=== PATIENT | female | born 1985 | race Caucasian/White ===

== ENCOUNTER 2017-03-12 22:04 | Emergency (ER) | payer SELFPAY ==
[~2017-03-12] VITALS: Ht 167.6 cm; Wt 60.0 kg
[~2017-03-12 22:04] MED LIST: ACET5SOL5 PO; AUGM875T PO
[2017-03-12 22:16] VITALS: BP 122/79; PULSE 114; RESP 18; TEMP 97.6; O2SAT 95
[2017-03-12 22:20] VITALS: BP 122/79; PULSE 114; RESP 18; O2SAT 96
[2017-03-12] MEDS ORDERED: SODIUM CHLOR 0.9% 1000 ML INJ 1,000 ML IV ONE (22:45)
[2017-03-12] MEDS ORDERED: ONDANSETRON HCL 4 MG/2 ML VIAL IV ONE (22:45)
--- NOTE | 2017-03-12 22:51 | PD ---
HPI Chief Complaint: OD/ Ingestion Time Seen by Provider: 22:32 Travel History International Travel<30 days: No Contact w/Intl Traveler<30days: No Traveled to known affect area: No History of Present Illness HPI The patient is a 31 year old female who presents to the [facility] emergency department with a history of being found by her roommate unresponsive after using IV heroin. The patient had blue coloration with decreased respiratory rate. Ambulance services reported that she had pinpoint pupils. IV access was obtained and the patient was administered Narcan. The patient became awake and alert with a GCS of 15. On arrival, the patient is initially requesting to go home. According to ambulance services after Narcan was administered the patient had 1 episode of vomiting. The patient has emesis on her face. She denies ever having a history previously of overdosing on heroin or dilaudid. She reports that she prefers to use Dilaudid, however she was having difficulty obtaining this as she used the heroin today. She reports that the dose most of been stronger. I review of systems, the patient denies any recent fevers, cough, congestion, neck pain, chest pain, shortness of breath , abdominal pain, diarrhea, urinary symptoms, or neurologic symptoms. LMP: Approximate month ago. She denies any possibility of being . [facility] Past Medical History Narrative Medical The patient's past medical history is significant for hepatitis C, IV drug use, anxiety and depression, asthma, headaches Asthma: Yes Anxiety: Yes Depression: Yes Cancer: No Cardiovascular Problems: Yes Chest Pain: Yes Diminished Hearing: No Endocrine: No Gastrointestinal Disorders: No Genitourinary: No Hepatitis: Yes (C) Hypertension: Yes (REMOTE HISTORY; RESOLVED; NOT TAKING MEDICATIONS FOR HTN AT THIS TIME) Implanted Vascular Access Dvce: No Musculoskeletal: Yes Neurologic: Yes Psychiatric: Yes Respiratory: Yes (BRONCHITIS) Migraines: Yes ?: Not LMP: 02/13/17 : 1 Para: 0 Miscarriage: 0 : 1 Ovarian Cysts: Yes Past Surgical History Narrative Surgical The patient denies any past surgical history. Surgical History: No Previous Surgery Other Surgery: No Social History Alcohol Use: No (DENIES) Tobacco Use: Yes (1/2 PPD) Substance Use: Yes (XANAX/HERoin, Dilaudid) Allergies-Medications (Allergen,Severity, Reaction): Coded Allergies: No Known Allergies (Verified , 03/05/15) Reported Meds & Prescriptions Reported Meds & Active Scripts Active Proair Respiclick Inh (Albuterol Sulfate) 90 Mcg/Act Aerp 2 Puff INH Q4-6H PRN Review of Systems Except as stated in HPI: all other systems reviewed are Neg General / Constitutional: No: Fever Eyes: No: Visual changes HENT: No: Headaches Cardiovascular: No: Chest Pain or Discomfort Respiratory: No: Shortness of Breath Gastrointestinal: Positive: Vomiting, No: Nausea, Abdominal Pain Genitourinary: No: Dysuria Musculoskeletal: No: Pain Skin: No Rash Neurologic: Positive: Change in Mentation, No: Weakness, Focal Abnormalities, Sensory Disturbance Psychiatric: Positive: Substance Abuse, No: Depression Endocrine: No: Polydipsia Hematologic/Lymphatic: No: Easy Bruising Physical Exam Narrative General: The patient is a well-developed well-nourished female in no acute distress, disheveled appearing on arrival with emesis dried along the sides of her face. Head and Neck exam: Head is normocephalic atraumatic. Eyes: EOMI, pupils are equal round and reactive to light. Nose: Midline septum with pink mucous membranes Mouth: Dentition unremarkable. Moist mucus membranes. Posterior oropharynx is not erythematous. No tonsillar hypertrophy. Uvula midline. Airway patent. Neck: No palpable lymphadenopathy. No nuchal rigidity. No thyromegaly. Cardiovascular: Sinus tachycardia in the low 100s without murmurs, gallops, or rubs. Lungs: Clear to auscultation bilaterally. No wheezes, rhonchi, or rales. Abdomen: Soft, without tenderness to palpation in all 4 quadrants of the abdomen. No guarding, rebound, or rigidity. Normal bowel sounds are audible. No tenderness on palpation of McBurney's point. Extremities: No clubbing, cyanosis, or edema. 2+ pulses in all 4 extremities. No calf tenderness on palpation. Back: No spinous process tenderness to palpation. No costovertebral angle tenderness to palpation. Neurologic Exam: Cranial nerves 2-12 were intact on exam. Strength is 5/5 in all 4 extremities. No sensory deficits noted. The patient is oriented to person, place, time, and situation. Skin Exam: No rash noted. Intact skin that is warm and dry. The patient is noted to have track staton on her upper extremities. Data Data Last Documented VS Vital Signs Date Time Temp Pulse Resp B/P Pulse Ox O2 Delivery O2 Flow Rate FiO2 03/13/17 00:15 111 18 97/50 96 Nasal Cannula 2 03/12/17 22:16 97.6 Orders Complete Blood Count With Diff (03/12/17 22:32) Basic Metabolic Panel (Bmp) (03/12/17 22:32) Urinalysis - C+S If Indicated (03/12/17 22:32) Chest, Single Ap (03/12/17 22:32) Iv Access Insert/Monitor (03/12/17 22:32) Ecg Monitoring (03/12/17 22:32) Oximetry (03/12/17 22:32) Ed Urine Pregnancytest Poc (03/12/17 22:32) Sodium Chlor 0.9% 1000 Ml Inj (Ns 1000 M (03/12/17 22:45) Ondansetron Inj (Zofran Inj) (03/12/17 22:45) Sodium Chloride 0.9% Flush (Ns Flush) (03/12/17 23:00) Albuterol-Ipratropium Neb (Duoneb Neb) (03/12/17 23:00) Labs Laboratory Tests Test 03/12/17 03/12/17 23:00 23:15 White Blood Count 10.2 TH/MM3 Red Blood Count 3.92 MIL/MM3 Hemoglobin 12.2 GM/DL Hematocrit 35.6 % Mean Corpuscular Volume 90.8 FL Mean Corpuscular Hemoglobin 31.1 PG Mean Corpuscular Hemoglobin 34.2 % Concent Red Cell Distribution Width 13.3 % Platelet Count 196 TH/MM3 Mean Platelet Volume 7.2 FL Neutrophils (%) (Auto) 72.2 % Lymphocytes (%) (Auto) 19.6 % Monocytes (%) (Auto) 6.8 % Eosinophils (%) (Auto) 1.3 % Basophils (%) (Auto) 0.1 % Neutrophils # (Auto) 7.4 TH/MM3 Lymphocytes # (Auto) 2.0 TH/MM3 Monocytes # (Auto) 0.7 TH/MM3 Eosinophils # (Auto) 0.1 TH/MM3 Basophils # (Auto) 0.0 TH/MM3 CBC Comment DIFF FINAL Differential Comment Sodium Level 142 MEQ/L Potassium Level 3.7 MEQ/L Chloride Level 103 MEQ/L Carbon Dioxide Level 31.2 MEQ/L Anion Gap 8 MEQ/L Blood Urea Nitrogen 9 MG/DL Creatinine 0.93 MG/DL Estimat Glomerular Filtration 71 ML/MIN Rate Random Glucose 83 MG/DL Calcium Level 8.3 MG/DL Urine Color YELLOW Urine Turbidity HAZY Urine pH 6.5 Urine Specific [place] 1.012 Urine Protein 30 mg/dL Urine Glucose (UA) NEG mg/dL Urine Ketones NEG mg/dL Urine Occult Blood NEG Urine Nitrite NEG Urine Bilirubin NEG Urine Urobilinogen LESS THAN 2.0 MG/DL Urine Leukocyte Esterase NEG Urine RBC 1 /hpf Urine WBC 2 /hpf Urine Squamous Epithelial 1 /hpf Cells Urine Bacteria RARE /hpf Urine Mucus FEW /lpf Microscopic Urinalysis Comment CULT NOT INDICATED MDM Medical Decision Making Medical Screen Exam Complete: Yes Emergency Medical Condition: Yes Medical Record Reviewed: Yes Interpretation(s) Last Impressions Chest X-Ray 03/12/172231 Signed Impressions: Service Date/Time: Sunday, March 12, 2017 22:32 - CONCLUSION: Normal examination. Beto Alan MD Differential Diagnosis Accidental heroin overdose, versus polysubstance abuse, versus aspiration Narrative Course During the course of the patients emergency department visit, the patients history, examination, and differential diagnosis were reviewed with the patient. The patient had IV access obtained and blood work sent for analysis. The patient was placed on a monitoring coordinator with oximetry and blood pressure monitoring. The patient was instructed regarding the importance of staying for observation in the emergency department as she can develop recurrent respiratory depression when the Narcan wears off. The patient was agreeable with this plan. The patient was initially provided normal saline 1 L IV fluid bolus, Zofran 4 mg IV. The patient was given a DuoNeb 2. The patients laboratory studies were reviewed and remarkable for a white count 10.2, hemoglobin 12.2, platelets 196 with 72.2 neutrophils, basic metabolic profile is remarkable for a GFR 71, calcium 8.3, urinalysis is unremarkable per Radiology studies were reviewed and remarkable for a chest x-ray that shows no acute abnormality. The patient was observed in the emergency department and had no further episodes of respiratory depression. The patient will be discharged home with a prescription for pro-air inhaler for her asthma. The patient is resting comfortably and feels better, is alert and in no distress. The patients results and examination findings were discussed with the patient. The repeat examination is unremarkable and benign. The history, exam, diagnostic testing, and current condition do not suggest any significant pathology to warrant further testing, continued ED treatment, admission, or surgical evaluation at this point. The vital signs have been stable. The patient does not have uncontrollable pain, intractable vomiting, or other significant symptoms. The patient's condition is stable and appropriate for discharge. The patient will pursue further outpatient evaluation with a primary care physician or other designated or consulting physician as indicated in the discharge instructions. The patient expressed understanding and was agreeable with this plan. Diagnosis Primary Impression: Opiate or related narcotic overdose Qualified Code: T40.601A - Opiate or related narcotic overdose, accidental or unintentional, initial encounter Referrals: Primary Care Physician 2 days Patient Instructions: Asthma (ED), General Instructions, Narcotic Abuse (ED) Med/Other Pt SpecificInfo: Prescription(s) given Scripts Albuterol Powder Inh (Proair Respiclick Inh)90 Mcg/Act Aerp2 Puff INH Q4-6H PRN (SHORTNESS OF BREATH) #1 INHALER Ref 0 Prov:Matilde Richardson MD 03/13/17 Disposition: 01 DISCHARGE HOME Condition: Stable Matilde Richardson MD Mar 12, 2017 22:51
[2017-03-12] MEDS ORDERED: SODIUM CHLORIDE 0.9% FLUSH 10 ML FLUSH IVF PRN (23:00)
--- NOTE | 2017-03-12 23:10 | RADRPT ---
EXAM DATE/TIME: 03/12/2017 22:32 [facility] COMPARISON: No previous studies available for comparison. INDICATIONS : Cough. MEDICAL HISTORY : None. SURGICAL HISTORY : None. ENCOUNTER: Initial ACUITY: 1 day PAIN SCORE: 0/10 LOCATION: Bilateral chest FINDINGS: A single view of the chest demonstrates the lungs to be symmetrically aerated without evidence of mas s, infiltrate or effusion. The cardiomediastinal contours are unremarkable. Osseous structures are intact. CONCLUSION: Normal examination. Beto Alan MD on March 12, 2017 at 23:08 Board Certified Radiologist. This report was verified electronically.
[2017-03-12 23:18] LABS: AUTOMATED NEUTROPHIL # 7.4 TH/MM3 (1.8-7.7); BASOPHIL % 0.1 % (0.0-2.0); EOSINOPHIL # 0.1 TH/MM3 (0-0.4); EOSINOPHIL % 1.3 % (0.0-4.0); HEMATOCRIT 35.6 % (35.0-46.0); HEMO FLAGS DIFF FINAL; LYMPH % 19.6 % (9.0-44.0); MEAN CELL VOLUME 90.8 FL (80.0-100.0); MEAN CORPUSCULAR HEMOGLOBIN 31.1 PG (27.0-34.0); MEAN CORPUSCULAR HGB CONC 34.2 % (32.0-36.0); MONO % 6.8 % (0.0-8.0); NEUT % 72.2 % (16.0-70.0); PLATELET COUNT 196 TH/MM3 (150-450); RED BLOOD COUNT 3.92 MIL/MM3 (4.00-5.30); RED CELL DISTRIBUTION WIDTH 13.3 % (11.6-17.2); WHITE BLOOD COUNT 10.2 TH/MM3 (4.0-11.0)
[2017-03-12 23:25] VITALS: O2SAT 99
[2017-03-12] MEDS: RESP: ALBUTEROL 2.5 MG/IPRATROPIUM 0.5 MG NEB (SCH) INH (23:25)
[2017-03-12 23:31] VITALS: RESP 18; O2SAT 95
[2017-03-12 23:44] LABS: BACTERIA, URINE RARE /hpf; BLOOD, URINE NEG (NEG); COMMENT (UR) CULT NOT INDICATED; CULTURE IF INDICATED CULT NOT INDICATED; GLUCOSE,URINE NEG (NEG); KETONE, URINE NEG (NEG); MUCUS URINE FEW /lpf (OCC); NITRITE,URINE NEG (NEG); PH, URINE 6.5 (5.0-8.5); SQUAMOUS EPITHELIAL CELL URINE 1 /hpf (0-5); URINE COLOR YELLOW (YELLW/STRAW)
[2017-03-12 23:48] LABS: BICARBONATE 31.2 MEQ/L (21.0-32.0)
[2017-03-13 00:02] LABS: POTASSIUM 3.7 MEQ/L (3.5-5.1)
[2017-03-13 00:15] VITALS: BP 97/50; PULSE 111; PULSE 70; RESP 18; O2SAT 96
[2017-03-13] MEDS ORDERED: ALBU1AER5 INH (00:23)
[2017-03-13 02:31] VITALS: BP 105/61; PULSE 98; RESP 18; O2SAT 95
== END 2017-03-13 02:31 | disposition home or self-care (01) ==
LOC: NEPE 22:04
DX: T40.601A Poisoning by unspecified narcotics, accidental (unintentional), initial encounter (principal); R11.10 Vomiting, unspecified; J45.909 Unspecified asthma, uncomplicated
CPT/HCPCS: 71010; 80048; 81001; 84703; 85025; 94640; 94664; 99284; J7030

== ENCOUNTER 2017-06-01 10:52 | Emergency (ER) | payer SELFPAY ==
[~2017-06-01] VITALS: Ht 167.6 cm; Wt 58.0 kg
[~2017-06-01 10:52] MED LIST changes: -ACET5SOL5 PO; +ALBU1AER5 INH; -AUGM875T PO
[2017-06-01 10:54] VITALS: BP 124/72; PULSE 91; RESP 17; TEMP 98.1; O2SAT 96
[2017-06-01 11:08] VITALS: BP 116/67; PULSE 90; RESP 28; O2SAT 98
--- NOTE | 2017-06-01 11:25 | PD ---
HPI Chief Complaint: Medical Clearance Time Seen by Provider: 11:25 Travel History International Travel<30 days: No Contact w/Intl Traveler<30days: No Traveled to known affect area: No History of Present Illness HPI 31-year-old female with history of IV drug use, drug of choice heroin, presents to emergency department today for evaluation of left-sided chest pain, worse with deep inspiration. Patient noticed this this morning that it was painful to take a deep breath. She does not recall any injury. Denies any exacerbation with palpation. States that she feels short of breath like she can 't catch her breath. Denies any history of PE or DVT. Patient denies fever or chills. No nausea or vomiting. Last used heroin at 3 AM this morning. PFSH Past Medical History Asthma: Yes Anxiety: Yes Depression: Yes Cancer: No Cardiovascular Problems: Yes Chest Pain: Yes Diminished Hearing: No Endocrine: No Gastrointestinal Disorders: No Genitourinary: No Hepatitis: Yes (C) Hypertension: Yes (REMOTE HISTORY; RESOLVED; NOT TAKING MEDICATIONS FOR HTN AT THIS TIME) Implanted Vascular Access Dvce: No Musculoskeletal: Yes Neurologic: Yes Psychiatric: Yes Respiratory: Yes (BRONCHITIS) Migraines: Yes ?: Not LMP: UNKNOWN : 1 Para: 0 Miscarriage: 0 : 1 Ovarian Cysts: Yes Past Surgical History Other Surgery: No Social History Alcohol Use: No (DENIES) Tobacco Use: Yes (1/2 PPD) Substance Use: Yes (XANAX/HERoin, Dilaudid) Allergies-Medications (Allergen,Severity, Reaction): Coded Allergies: No Known Allergies (Verified , 06/01/17) Reported Meds & Prescriptions Reported Meds & Active Scripts Active Proair Respiclick Inh (Albuterol Sulfate) 90 Mcg/Act Aerp 2 Puff INH Q4-6H PRN Review of Systems Except as stated in HPI: all other systems reviewed are Neg Physical Exam Narrative GENERAL: Well-nourished female patient, in no acute distress SKIN: Focused skin assessment warm/dry. HEAD: Atraumatic. Normocephalic. EYES: Pupils equal and round. No scleral icterus. No injection or drainage. ENT: No nasal bleeding or discharge. Mucous membranes pink and moist. NECK: Trachea midline. No JVD. CARDIOVASCULAR: Tachycardiac rate and rhythm. No murmur appreciated. RESPIRATORY: No accessory muscle use. Tachypneic Diminished left lower lobe. Pain elicited with deep inspiration Breath sounds equal bilaterally. GASTROINTESTINAL: Abdomen soft, non-tender, nondistended. Hepatic and splenic margins not palpable. MUSCULOSKELETAL: No obvious deformities. No clubbing. No cyanosis. No edema. NEUROLOGICAL: Awake and alert. No obvious cranial nerve deficits. Motor grossly within normal limits. Normal speech. Data Data Last Documented VS Vital Signs Date Time Temp Pulse Resp B/P Pulse Ox O2 Delivery O2 Flow Rate FiO2 06/01/17 13:18 92 16 118/68 98 Room Air 06/01/17 10:54 98.1 Orders Electrocardiogram (06/01/17 11:23) Complete Blood Count With Diff (06/01/17 11:23) Comprehensive Metabolic Panel (06/01/17 11:23) D-Dimer (06/01/17 11:23) Lipase (06/01/17 11:23) Chest, Single Ap (06/01/17 11:23) Ecg Monitoring (06/01/17 11:23) Bilateral Bp Monitoring (06/01/17 11:23) Iv Access Insert/Monitor (06/01/17 11:23) Oximetry (06/01/17 11:23) Oxygen Administration (06/01/17 11:23) Sodium Chloride 0.9% Flush (Ns Flush) (06/01/17 11:30) Ed Urine Pregnancytest Poc (06/01/17 11:23) Urinalysis - C+S If Indicated (06/01/17 11:23) Sodium Chlor 0.9% 1000 Ml Inj (Ns 1000 M (06/01/17 11:30) Lactic Acid Sepsis Protocol (06/01/17 12:29) Blood Culture (06/01/17 12:29) Troponin I (06/01/17 12:31) Creatine Kinase (Cpk) (06/01/17 12:31) Sodium Chlor 0.9% 1000 Ml Inj (Ns 1000 M (06/01/17 12:45) Morphine Inj (Morphine Inj) (06/01/17 12:45) Ondansetron Inj (Zofran Inj) (06/01/17 12:45) Vancomycin Inj (Vancomycin Inj) (06/01/17 12:45) Piperacil-Tazo 3.375 Gm Premix (Zosyn 3. (06/01/17 12:45) Urine Culture (06/01/17 12:30) Ct Pulmonary Angiogram (06/01/17 ) Vascular Access Team Consult/P PRN (06/01/17 13:09) Vascular Poc Ultrasound (06/01/17 ) Vancomycin Inj (Vancomycin Inj) (06/01/17 13:11) Cefepime Inj (Maxipime Inj) (06/01/17 13:11) Azithromycin Inj (Zithromax Inj) (06/01/17 13:11) Ketorolac Inj (Toradol Inj) (06/01/17 15:00) Labs Laboratory Tests Test 06/01/17 06/01/17 06/01/17 12:25 12:30 12:35 White Blood Count 6.9 TH/MM3 Red Blood Count 3.79 MIL/MM3 Hemoglobin 11.0 GM/DL Hematocrit 32.7 % Mean Corpuscular Volume 86.3 FL Mean Corpuscular Hemoglobin 29.1 PG Mean Corpuscular Hemoglobin 33.7 % Concent Red Cell Distribution Width 13.4 % Platelet Count 384 TH/MM3 Mean Platelet Volume 6.6 FL Neutrophils (%) (Auto) 78.3 % Lymphocytes (%) (Auto) 13.6 % Monocytes (%) (Auto) 6.3 % Eosinophils (%) (Auto) 1.4 % Basophils (%) (Auto) 0.4 % Neutrophils # (Auto) 5.4 TH/MM3 Lymphocytes # (Auto) 0.9 TH/MM3 Monocytes # (Auto) 0.4 TH/MM3 Eosinophils # (Auto) 0.1 TH/MM3 Basophils # (Auto) 0.0 TH/MM3 CBC Comment DIFF FINAL Differential Comment D-Dimer Quantitative (PE/DVT) 2.35 MG/L FEU Sodium Level 140 MEQ/L Potassium Level 3.3 MEQ/L Chloride Level 106 MEQ/L Carbon Dioxide Level 27.0 MEQ/L Anion Gap 7 MEQ/L Blood Urea Nitrogen 9 MG/DL Creatinine 0.58 MG/DL Estimat Glomerular Filtration 123 ML/MIN Rate Random Glucose 137 MG/DL Calcium Level 8.9 MG/DL Total Bilirubin 0.3 MG/DL Aspartate Amino Transf 25 U/L (AST/SGOT) Alanine Aminotransferase 35 U/L (ALT/SGPT) Alkaline Phosphatase 141 U/L Total Creatine Kinase 87 U/L Troponin I LESS THAN 0.02 NG/ML Total Protein 8.1 GM/DL Albumin 2.7 GM/DL Lipase 126 U/L Urine Color YELLOW Urine Turbidity HAZY Urine pH 6.0 Urine Specific [place] 1.008 Urine Protein NEG mg/dL Urine Glucose (UA) NEG mg/dL Urine Ketones NEG mg/dL Urine Occult Blood NEG Urine Nitrite NEG Urine Bilirubin NEG Urine Urobilinogen 2.0 MG/DL Urine Leukocyte Esterase SMALL Urine RBC 1 /hpf Urine WBC 7 /hpf Urine Squamous Epithelial 4 /hpf Cells Urine Transitional Epithelial <1 /hpf Cells Urine Bacteria MANY /hpf Urine Mucus FEW /lpf Microscopic Urinalysis Comment CULTURE INDICATED Lactic Acid Level 1.0 mmol/L MDM Medical Decision Making Medical Screen Exam Complete: Yes Emergency Medical Condition: Yes Medical Record Reviewed: Yes Differential Diagnosis PE versus pleurisy versus pneumonia versus endocarditis Narrative Course 31 year-old female presents to emergency department for evaluation of left- sided chest pain, worse with deep inspiration. Patient is tachypneic with slightly elevated heart rate. Diminished left lower lobe sounds. Patient is treated for pain. Laboratory Tests Test 06/01/17 06/01/17 06/01/17 12:25 12:30 12:35 White Blood Count 6.9 TH/MM3 Red Blood Count 3.79 MIL/MM3 Hemoglobin 11.0 GM/DL Hematocrit 32.7 % Mean Corpuscular Volume 86.3 FL Mean Corpuscular Hemoglobin 29.1 PG Mean Corpuscular Hemoglobin 33.7 % Concent Red Cell Distribution Width 13.4 % Platelet Count 384 TH/MM3 Mean Platelet Volume 6.6 FL Neutrophils (%) (Auto) 78.3 % Lymphocytes (%) (Auto) 13.6 % Monocytes (%) (Auto) 6.3 % Eosinophils (%) (Auto) 1.4 % Basophils (%) (Auto) 0.4 % Neutrophils # (Auto) 5.4 TH/MM3 Lymphocytes # (Auto) 0.9 TH/MM3 Monocytes # (Auto) 0.4 TH/MM3 Eosinophils # (Auto) 0.1 TH/MM3 Basophils # (Auto) 0.0 TH/MM3 CBC Comment DIFF FINAL Differential Comment D-Dimer Quantitative (PE/DVT) 2.35 MG/L FEU Sodium Level 140 MEQ/L Potassium Level 3.3 MEQ/L Chloride Level 106 MEQ/L Carbon Dioxide Level 27.0 MEQ/L Anion Gap 7 MEQ/L Blood Urea Nitrogen 9 MG/DL Creatinine 0.58 MG/DL Estimat Glomerular Filtration 123 ML/MIN Rate Random Glucose 137 MG/DL Calcium Level 8.9 MG/DL Total Bilirubin 0.3 MG/DL Aspartate Amino Transf 25 U/L (AST/SGOT) Alanine Aminotransferase 35 U/L (ALT/SGPT) Alkaline Phosphatase 141 U/L Total Creatine Kinase 87 U/L Troponin I LESS THAN 0.02 NG/ML Total Protein 8.1 GM/DL Albumin 2.7 GM/DL Lipase 126 U/L Urine Color YELLOW Urine Turbidity HAZY Urine pH 6.0 Urine Specific [place] 1.008 Urine Protein NEG mg/dL Urine Glucose (UA) NEG mg/dL Urine Ketones NEG mg/dL Urine Occult Blood NEG Urine Nitrite NEG Urine Bilirubin NEG Urine Urobilinogen 2.0 MG/DL Urine Leukocyte Esterase SMALL Urine RBC 1 /hpf Urine WBC 7 /hpf Urine Squamous Epithelial 4 /hpf Cells Urine Transitional Epithelial <1 /hpf Cells Urine Bacteria MANY /hpf Urine Mucus FEW /lpf Microscopic Urinalysis Comment CULTURE INDICATED Lactic Acid Level 1.0 mmol/L Chest x-ray shows large left lobe pleural effusion. I discussed the patient with my attending physician who recommends lactic acid as well as broad spectrum antibiotic. CT pulmonary angiogram will be ordered 1435 I have inquired about patient's IV access for CT pulmonary angiogram and abdomen performed at vascular access is via down nor has nursing staff obtained additional access. Call has been placed [facility] for admission. 1455 patient states that she does not want to stay here and wants to leave. I discussed with the patient that she has a large fluid collection in her lung that may only worsen. We do not know exactly where this coming from. We are not sure if she has other pathology going on in her lung or a heart infection. I recommended that she stay for further evaluation however the patient states that she has no interest in A- this time. I made it lear to her that her choosing to leave may result in consequences not limited to pulmonary injury, disability, and . Patient verbalizes understanding. She is competent to make this decision at this time she will leave AGAINST MEDICAL ADVICE Diagnosis Primary Impression: Pleural effusion Additional Impressions: Chest pain Qualified Code: R07.1 - Chest pain on breathing Elevated d-dimer IVDU (intravenous drug user) Opiate abuse, continuous Disposition: AGAINST MEDICAL ADVICE Condition: Stable Melanie Rea Jun 01, 2017 11:25
[2017-06-01] MEDS ORDERED: SODIUM CHLOR 0.9% 1000 ML INJ 1,000 ML IV ONE ×2 (11:30→12:45)
[2017-06-01] MEDS ORDERED: SODIUM CHLORIDE 0.9% FLUSH 10 ML FLUSH IVF PRN (11:30)
--- NOTE | 2017-06-01 11:58 | RADRPT ---
EXAM DATE/TIME: 06/01/2017 11:25 [facility] COMPARISON: CHEST SINGLE AP, March 12, 2017, 22:32. INDICATIONS : Shortness of breath, cough, and left sided chest pain for four days. MEDICAL HISTORY : None. SURGICAL HISTORY : None. ENCOUNTER: Initial ACUITY: 4 - 6 days PAIN SCORE: 5/10 LOCATION: Left chest FINDINGS: A single view of the chest demonstrates increased density at the lateral costophrenic angle on the le ft consistent with a large pleural effusion. The left upper lobe and right lung are unremarkable The cardiomediastinal contours are unremarkable. Osseous structures are intact. CONCLUSION: Left sided pleural effusion mostly loculated in the left lower chest. Right lung is clear. Beto Alan MD on June 01, 2017 at 11:56 Board Certified Radiologist. This report was verified electronically.
[2017-06-01 12:34] LABS: AUTOMATED NEUTROPHIL # 5.4 TH/MM3 (1.8-7.7); BASOPHIL % 0.4 % (0.0-2.0); EOSINOPHIL # 0.1 TH/MM3 (0-0.4); EOSINOPHIL % 1.4 % (0.0-4.0); HEMATOCRIT 32.7 % (35.0-46.0); HEMO FLAGS DIFF FINAL; LYMPH % 13.6 % (9.0-44.0); LYMPHOCYTE # 0.9 TH/MM3 (1.0-4.8); MEAN CELL VOLUME 86.3 FL (80.0-100.0); MEAN CORPUSCULAR HEMOGLOBIN 29.1 PG (27.0-34.0); MEAN CORPUSCULAR HGB CONC 33.7 % (32.0-36.0); MONO % 6.3 % (0.0-8.0); NEUT % 78.3 % (16.0-70.0); PLATELET COUNT 384 TH/MM3 (150-450); RED BLOOD COUNT 3.79 MIL/MM3 (4.00-5.30); RED CELL DISTRIBUTION WIDTH 13.4 % (11.6-17.2); WHITE BLOOD COUNT 6.9 TH/MM3 (4.0-11.0)
[2017-06-01 12:42] LABS: BACTERIA, URINE MANY /hpf; BLOOD, URINE NEG (NEG); COMMENT (UR) CULTURE INDICATED; CULTURE IF INDICATED CULTURE INDICATED; GLUCOSE,URINE NEG (NEG); KETONE, URINE NEG (NEG); MUCUS URINE FEW /lpf (OCC); NITRITE,URINE NEG (NEG); SQUAMOUS EPITHELIAL CELL URINE 4 /hpf (0-5); TRANSITIONAL EPI CELLS, URINE <1 /hpf; URINE COLOR YELLOW (YELLW/STRAW)
[2017-06-01] MEDS ORDERED: ONDANSETRON HCL 4 MG/2 ML VIAL IV PUSH ONE (12:45)
[2017-06-01] MEDS ORDERED: VANCOMYCIN INJ 1,000 MG in SODIUM CHLOR 0.9% 250 ML INJ 250 ML IV ONE (12:45)
[2017-06-01] MEDS ORDERED: MORPHINE SULFATE 4 MG/ML INJ IV PUSH ONE (12:45)
[2017-06-01] MEDS ORDERED: PIPERACIL-TAZO 3.375 GM PREMIX 50 ML IV ONE (12:45)
[2017-06-01 12:50] LABS: ALT (GPT) 35 U/L (10-53); ANION GAP 7 MEQ/L (5-15); AST (GOT) 25 U/L (15-37); BLOOD UREA NITROGEN 9 MG/DL (7-18); CHLORIDE 106 MEQ/L (98-107); GLOMERULAR FILTRATION RATE 123 ML/MIN (>89); POTASSIUM 3.3 MEQ/L (3.5-5.1); SODIUM (NA) 140 MEQ/L (136-145)
[2017-06-01 12:53] LABS: ALKALINE PHOSPHATASE 141 U/L (45-117); TOTAL BILIRUBIN ADULT 0.3 MG/DL (0.2-1.0)
[2017-06-01] MEDS ORDERED: VANCOMYCIN INJ 1 MG in SODIUM CHLOR 0.9% 250 ML INJ 250 ML IV STA (13:11)
[2017-06-01] MEDS ORDERED: AZITHROMYCIN INJ 500 MG in SODIUM CHLOR 0.9% 250 ML INJ 250 ML IV STA (13:11)
[2017-06-01] MEDS ORDERED: CEFEPIME INJ 2,000 MG in SODIUM CHLORIDE 0.9% INJ 100 ML IV STA (13:11)
[2017-06-01 13:18] VITALS: BP 118/68; PULSE 92; RESP 16; O2SAT 98
[2017-06-01 13:49] LABS: CREATINE KINASE 87 U/L (26-192)
--- NOTE | 2017-06-01 14:57 | PD ---
Physical Exam Narrative GENERAL: Well-nourished, well-developed patient. SKIN: Warm and dry. HEAD: Normocephalic and atraumatic. EYES: No injection or drainage. Dilated pupils bilaterally noted ENT: No nasal drainage noted. NECK: Supple, trachea midline. CARDIOVASCULAR: Regular rate and rhythm RESPIRATORY: No increased effort. No accessory muscle use. NEUROLOGICAL: Awake and alert. Motor and sensory grossly within normal limits. Normal speech. Data Data Last Documented VS Vital Signs Date Time Temp Pulse Resp B/P Pulse Ox O2 Delivery O2 Flow Rate FiO2 06/01/17 13:18 92 16 118/68 98 Room Air 06/01/17 10:54 98.1 Orders Electrocardiogram (06/01/17 11:23) Complete Blood Count With Diff (06/01/17 11:23) Comprehensive Metabolic Panel (06/01/17 11:23) D-Dimer (06/01/17 11:23) Lipase (06/01/17 11:23) Chest, Single Ap (06/01/17 11:23) Ecg Monitoring (06/01/17 11:23) Bilateral Bp Monitoring (06/01/17 11:23) Iv Access Insert/Monitor (06/01/17 11:23) Oximetry (06/01/17 11:23) Oxygen Administration (06/01/17 11:23) Sodium Chloride 0.9% Flush (Ns Flush) (06/01/17 11:30) Ed Urine Pregnancytest Poc (06/01/17 11:23) Urinalysis - C+S If Indicated (06/01/17 11:23) Sodium Chlor 0.9% 1000 Ml Inj (Ns 1000 M (06/01/17 11:30) Lactic Acid Sepsis Protocol (06/01/17 12:29) Blood Culture (06/01/17 12:29) Troponin I (06/01/17 12:31) Creatine Kinase (Cpk) (06/01/17 12:31) Sodium Chlor 0.9% 1000 Ml Inj (Ns 1000 M (06/01/17 12:45) Morphine Inj (Morphine Inj) (06/01/17 12:45) Ondansetron Inj (Zofran Inj) (06/01/17 12:45) Vancomycin Inj (Vancomycin Inj) (06/01/17 12:45) Piperacil-Tazo 3.375 Gm Premix (Zosyn 3. (06/01/17 12:45) Urine Culture (06/01/17 12:30) Ct Pulmonary Angiogram (06/01/17 ) Vascular Access Team Consult/P PRN (06/01/17 13:09) Vascular Poc Ultrasound (06/01/17 ) Vancomycin Inj (Vancomycin Inj) (06/01/17 13:11) Cefepime Inj (Maxipime Inj) (06/01/17 13:11) Azithromycin Inj (Zithromax Inj) (06/01/17 13:11) Ketorolac Inj (Toradol Inj) (06/01/17 15:00) Prothrombin Time / Inr (Pt) (06/01/17 15:04) Act Partial Throm Time (Ptt) (06/01/17 15:04) Consent (06/01/17 15:04) Glucose, Pleural Fluid (06/01/17 15:04) Pleural Fluid Ph (06/01/17 15:04) Pleural Fl Cell Count + Diff (06/01/17 15:04) Fluid Culture And Gram Stain (06/01/17 15:04) Total Protein, Pleural Fluid (06/01/17 15:04) Consult Pulmonology (06/01/17 ) Ct Guided Thoracentesis (06/01/17 ) Potassium Chloride (Kcl) (06/01/17 15:15) Drug Screen, Random Urine (06/01/17 15:07) Labs Laboratory Tests Test 06/01/17 06/01/17 06/01/17 12:25 12:30 12:35 White Blood Count 6.9 TH/MM3 Red Blood Count 3.79 MIL/MM3 Hemoglobin 11.0 GM/DL Hematocrit 32.7 % Mean Corpuscular Volume 86.3 FL Mean Corpuscular Hemoglobin 29.1 PG Mean Corpuscular Hemoglobin 33.7 % Concent Red Cell Distribution Width 13.4 % Platelet Count 384 TH/MM3 Mean Platelet Volume 6.6 FL Neutrophils (%) (Auto) 78.3 % Lymphocytes (%) (Auto) 13.6 % Monocytes (%) (Auto) 6.3 % Eosinophils (%) (Auto) 1.4 % Basophils (%) (Auto) 0.4 % Neutrophils # (Auto) 5.4 TH/MM3 Lymphocytes # (Auto) 0.9 TH/MM3 Monocytes # (Auto) 0.4 TH/MM3 Eosinophils # (Auto) 0.1 TH/MM3 Basophils # (Auto) 0.0 TH/MM3 CBC Comment DIFF FINAL Differential Comment D-Dimer Quantitative (PE/DVT) 2.35 MG/L FEU Sodium Level 140 MEQ/L Potassium Level 3.3 MEQ/L Chloride Level 106 MEQ/L Carbon Dioxide Level 27.0 MEQ/L Anion Gap 7 MEQ/L Blood Urea Nitrogen 9 MG/DL Creatinine 0.58 MG/DL Estimat Glomerular Filtration 123 ML/MIN Rate Random Glucose 137 MG/DL Calcium Level 8.9 MG/DL Total Bilirubin 0.3 MG/DL Aspartate Amino Transf 25 U/L (AST/SGOT) Alanine Aminotransferase 35 U/L (ALT/SGPT) Alkaline Phosphatase 141 U/L Total Creatine Kinase 87 U/L Troponin I LESS THAN 0.02 NG/ML Total Protein 8.1 GM/DL Albumin 2.7 GM/DL Lipase 126 U/L Urine Color YELLOW Urine Turbidity HAZY Urine pH 6.0 Urine Specific [place] 1.008 Urine Protein NEG mg/dL Urine Glucose (UA) NEG mg/dL Urine Ketones NEG mg/dL Urine Occult Blood NEG Urine Nitrite NEG Urine Bilirubin NEG Urine Urobilinogen 2.0 MG/DL Urine Leukocyte Esterase SMALL Urine RBC 1 /hpf Urine WBC 7 /hpf Urine Squamous Epithelial 4 /hpf Cells Urine Transitional Epithelial <1 /hpf Cells Urine Bacteria MANY /hpf Urine Mucus FEW /lpf Microscopic Urinalysis Comment CULTURE INDICATED Lactic Acid Level 1.0 mmol/L MDM Supervised Visit with LONG: Yes Interpretation(s) CBC & BMP Diagram 06/01/17 12:25 Last 24 hours Impressions Chest X-Ray 06/01/17 1123 Signed Impressions: Service Date/Time: Thursday, June 01, 2017 11:25 - CONCLUSION: Left sided pleural effusion mostly loculated in the left lower chest. Right lung is clear. Beto Alan MD Narrative Course I, Dr. castro, have reviewed the advance practice practitioner's documentation and am in agreement, met with the patient face to face, made the diagnosis, and the medical decision making was done by me. *My assessment and Findings: 31-year-old female presents with chest pain and history of IV drug abuse. CT scan shows loculated area within lung. Given broad-spectrum coverage given history of IV drug abuse. Patient with normal lactate. Patient elected to leave ama before ct and admission Diagnosis Primary Impression: Chest pain Qualified Code: R07.1 - Chest pain on breathing Additional Impressions: Elevated d-dimer Opiate abuse, continuous IVDU (intravenous drug user) Loculated pleural effusion Disposition: 07 AGAINST MEDICAL ADVICE Condition: Stable Audrey Castro MD Jun 01, 2017 14:57
[2017-06-01] MEDS ORDERED: KETOROLAC TROMETHAMINE 30 MG/ML (IVP) VIAL IV PUSH ONE (15:00)
[2017-06-01] MEDS ORDERED: POTASSIUM CHLORIDE 20 MEQ CONTROLLED RELEASE TAB PO ONE (15:15)
--- NOTE | 2017-06-01 17:33 | EKG ---
Date Performed: 06/01/2017 Time Performed: 12:36:30 PTAGE: 31 years EKG: Sinus rhythm NORMAL ECG INTERPRETATION BASED ON A DEFAULT AGE OF 40 YEARS PREVIOUS TRACING : 03/05/2015 21.06 Compared to prior tracing no significant change DOCTOR: Manuel Quick Interpretating Date/Time 06/01/2017 17:32:47
== END 2017-06-01 15:12 | disposition left against medical advice (07) ==
LOC: NEPE 10:52
DX: J90 Pleural effusion, not elsewhere classified (principal); R79.89 Other specified abnormal findings of blood chemistry; F17.210 Nicotine dependence, cigarettes, uncomplicated; F11.10 Opioid abuse, uncomplicated; B96.20 Unspecified Escherichia coli [E. coli] as the cause of diseases classified elsewhere; R06.82 Tachypnea, not elsewhere classified; Z53.21 Procedure and treatment not carried out due to patient leaving prior to being seen by health care provider
CPT/HCPCS: 71010; 80053; 81001; 82550; 83605; 83690; 84484; 84703; 85025; 85379; 87040; 87077; 87086; 87186; 93005; 96365; 96375; 99285; J0456; J2270; J2405; J2543; J3370; J7030; J7050

== ENCOUNTER 2017-06-01 21:53 | Emergency (ER) | payer SELFPAY ==
[~2017-06-01] VITALS: Ht 172.7 cm; Wt 58.0 kg
[2017-06-01 21:56] VITALS: BP 124/63; PULSE 109; RESP 16; TEMP 99; O2SAT 98
== END 2017-06-01 23:37 | disposition left against medical advice (07) ==
LOC: NED 21:53
DX: R06.02 Shortness of breath (principal)
CPT/HCPCS: 99281

== ENCOUNTER 2018-02-27 14:26 | Emergency (ER) | payer SELFPAY ==
[2018-02-27 14:37] VITALS: BP 116/66; PULSE 102; RESP 16; TEMP 98.5; O2SAT 99
[2018-02-27 15:41] LABS: AUTOMATED NEUTROPHIL # 5.9 TH/MM3 (1.8-7.7); BASOPHIL % 0.4 % (0.0-2.0); EOSINOPHIL # 0.1 TH/MM3 (0-0.4); EOSINOPHIL % 1.2 % (0.0-4.0); HEMATOCRIT 40.9 % (35.0-46.0); HEMOGLOBIN 13.3 GM/DL (11.6-15.3); LYMPHOCYTE # 1.4 TH/MM3 (1.0-4.8); MEAN CELL VOLUME 88.3 FL (80.0-100.0); MEAN CORPUSCULAR HEMOGLOBIN 28.8 PG (27.0-34.0); MEAN CORPUSCULAR HGB CONC 32.6 % (32.0-36.0); MEAN PLATELET VOLUME 7.6 FL (7.0-11.0); MONO % 4.4 % (0.0-8.0); MONOCYTE # 0.3 TH/MM3 (0-0.9); PLATELET COUNT 237 TH/MM3 (150-450); RED BLOOD COUNT 4.63 MIL/MM3 (4.00-5.30); RED CELL DISTRIBUTION WIDTH 13.9 % (11.6-17.2); WHITE BLOOD COUNT 7.8 TH/MM3 (4.0-11.0)
[2018-02-27 16:09] LABS: BICARBONATE 23.1 MEQ/L (21.0-32.0); CALCIUM 8.4 MG/DL (8.5-10.1); CREATININE 0.75 MG/DL (0.50-1.00)
[2018-02-27 16:34] LABS: BACTERIA, URINE MOD /hpf; BILIRUBIN, URINE NEG (NEG); BLOOD, URINE NEG (NEG); GLUCOSE,URINE NEG (NEG); KETONE, URINE NEG (NEG); MUCUS URINE FEW /lpf (OCC); NITRITE,URINE NEG (NEG); SQUAMOUS EPITHELIAL CELL URINE 30 /hpf (0-5); TRANSITIONAL EPI CELLS, URINE 1 /hpf; URINE COLOR YELLOW (YELLW/STRAW); URINE LEUKOCYTE ESTERASE MOD (NEG)
== END 2018-02-27 17:36 | disposition left against medical advice (07) ==
LOC: NED 14:26
DX: L98.9 Disorder of the skin and subcutaneous tissue, unspecified (principal); R50.9 Fever, unspecified; B96.20 Unspecified Escherichia coli [E. coli] as the cause of diseases classified elsewhere; Z53.21 Procedure and treatment not carried out due to patient leaving prior to being seen by health care provider
CPT/HCPCS: 80048; 80307; 81001; 84703; 85025; 87040; 87077; 87086; 87186; 99281

== ENCOUNTER 2018-03-01 13:51 | Emergency (ER) | payer SELFPAY ==
[~2018-03-01] VITALS: Ht 167.6 cm; Wt 60.0 kg
[2018-03-01 14:00] VITALS: BP 122/65; PULSE 144; RESP 28; TEMP 102.8; O2SAT 96
[2018-03-01] MEDS ORDERED: SODIUM CHLOR 0.9% 1000 ML INJ 800 ML IV ONE (14:13)
[2018-03-01] MEDS ORDERED: PIPERACIL-TAZO 4.5 GM PREMIX 100 ML IV STA (14:13)
[2018-03-01] MEDS ORDERED: SODIUM CHLOR 0.9% 1000 ML INJ 1,000 ML IV ONE (14:13)
[2018-03-01] MEDS ORDERED: VANCOMYCIN INJ 1,200 MG in SODIUM CHLOR 0.9% 250 ML INJ 250 ML IV STA (14:13)
[2018-03-01 14:18] VITALS: BP 138/63; PULSE 116; RESP 24; O2SAT 96
[2018-03-01 14:31] VITALS: RESP 15; O2SAT 100
[2018-03-01] MEDS ORDERED: SUBO8MIS SL (14:36)
[2018-03-01 15:14] LABS: AUTOMATED NEUTROPHIL # 5.1 TH/MM3 (1.8-7.7); BASOPHIL % 0.3 % (0.0-2.0); EOSINOPHIL % 0.2 % (0.0-4.0); HEMATOCRIT 32.2 % (35.0-46.0); HEMOGLOBIN 10.9 GM/DL (11.6-15.3); LYMPH % 13.7 % (9.0-44.0); LYMPHOCYTE # 0.9 TH/MM3 (1.0-4.8); MEAN CORPUSCULAR HEMOGLOBIN 29.5 PG (27.0-34.0); MEAN CORPUSCULAR HGB CONC 33.9 % (32.0-36.0); MEAN PLATELET VOLUME 6.6 FL (7.0-11.0); MONO % 4.4 % (0.0-8.0); MONOCYTE # 0.3 TH/MM3 (0-0.9); NEUT % 81.4 % (16.0-70.0); PLATELET COUNT 374 TH/MM3 (150-450); RED BLOOD COUNT 3.69 MIL/MM3 (4.00-5.30); RED CELL DISTRIBUTION WIDTH 13.8 % (11.6-17.2); WHITE BLOOD COUNT 6.3 TH/MM3 (4.0-11.0)
[2018-03-01 15:41] LABS: ALT (GPT) 51 U/L (10-53); AST (GOT) 41 U/L (15-37); BICARBONATE 27.6 MEQ/L (21.0-32.0); BLOOD UREA NITROGEN 12 MG/DL (7-18); CALCIUM 8.4 MG/DL (8.5-10.1); CHLORIDE 100 MEQ/L (98-107); CREATININE 0.73 MG/DL (0.50-1.00); GLOMERULAR FILTRATION RATE 94 ML/MIN (>89); GLUCOSE,RANDOM 83 MG/DL (74-106); SODIUM (NA) 135 MEQ/L (136-145)
[2018-03-01 15:44] LABS: ALKALINE PHOSPHATASE 171 U/L (45-117); TOTAL BILIRUBIN ADULT 0.3 MG/DL (0.2-1.0); TOTAL PROTEIN 8.3 GM/DL (6.4-8.2); TROPONIN I LESS THAN 0.02 NG/ML (0.02-0.05)
--- NOTE | 2018-03-01 15:47 | RADRPT ---
EXAM DATE/TIME: 03/01/2018 14:54 [place] COMPARISON: CHEST SINGLE AP, June 01, 2017, 11:25. INDICATIONS : Fever. MEDICAL HISTORY : None. SURGICAL HISTORY : None. ENCOUNTER: Initial ACUITY: 2 weeks PAIN SCORE: 0/10 LOCATION: Bilateral chest FINDINGS: Lungs are hyperinflated. Diffuse interstitial prominence is noted. There is no evidence of acute air space disease or significant ingestion. Heart is normal in size. Osseous structures are intact. CONCLUSION: 1. COPD. 2. No evidence of acute process. Dennys Ross MD on March 01, 2018 at 15:43 Board Certified Radiologist. This report was verified electronically.
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
== END 2018-03-01 17:19 | disposition left against medical advice (07) ==
LOC: NEPE 13:51
DX: L03.113 Cellulitis of right upper limb (principal); J44.9 Chronic obstructive pulmonary disease, unspecified; F19.10 Other psychoactive substance abuse, uncomplicated; F17.200 Nicotine dependence, unspecified, uncomplicated
CPT/HCPCS: 71045; 80053; 83605; 84484; 85025; 87040; 96374; 99284; J2543; J7030

== ENCOUNTER 2018-05-05 19:37 | Emergency (ER) | payer OTHER ==
[~2018-05-05] VITALS: Ht 167.6 cm; Wt 57.0 kg
[~2018-05-05 19:37] MED LIST changes: +SUBO8MIS SL
[2018-05-05 20:05] VITALS: BP 147/82; PULSE 125; RESP 20; TEMP 97.9; O2SAT 98
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
[2018-05-05] MEDS ORDERED: SODIUM CHLORIDE 0.9% FLUSH 10 ML FLUSH IVF PRN (20:15)
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
[2018-05-05] MEDS ORDERED: IBUPROFEN 800 MG TAB PO ONE (21:45)
[2018-05-05 21:49] VITALS: BP 123/71; PULSE 109; RESP 18; O2SAT 98
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
== END 2018-05-05 22:45 | disposition home or self-care (01) ==
LOC: NEDAMB 19:37
DX: M79.1 Myalgia (principal); G44.319 Acute post-traumatic headache, not intractable; F17.200 Nicotine dependence, unspecified, uncomplicated; F11.10 Opioid abuse, uncomplicated; V89.2XXA Person injured in unspecified motor-vehicle accident, traffic, initial encounter
CPT/HCPCS: 70450; 70486; 72125; 72220; 99284